=== PATIENT | male | born 2005 | race Caucasian/White ===

== ENCOUNTER 2025-01-04 12:07 | Emergency (ER) | payer OTHER, SELFPAY ==
[2025-01-04 12:08] VITALS: BP 132/71; PULSE 60; RESP 16; TEMP 36.8; O2SAT 100; BMI 23.1
--- NOTE | 2025-01-04 12:20 | EX.ED.GENINJ ---
HPI History of Present Illness Chief Complaint: Head Injury Narrative Narrative: Patient is a 19-year-old male presenting to the emergency department for head wound. He has no significant past medical history. States that he was hammering a steak into the ground when the hammer came back and struck the right upper portion of his head. He denies loss of consciousness. Denies any other injuries. Denies headache, visual changes, nausea or vomiting. Denies neck or back pain. He reports he is up-to-date on his tetanus vaccination. PFSH PFS Allergy/AdvReac Type Severity Reaction Status Date / Time No Known Allergies Allergy Verified 01/04/25 12:10 Surgical History (Updated 01/04/25 @ 12:34 by Jurgen Sorensen) Hx of tonsillectomy Social History Smoking Status: Current some day smoker tobacco type: cigarettes ROS ROS ED ROS Narrative see HPI EXAM Physical Exam Narrative Exam Narrative: Vital signs: Reviewed General: Alert and orientedx3. No acute distress HEENT: Head is normocephalic. 2 cm by 2 cm stellate laceration to right parietal portion of scalp. No underlying cephalhematoma. No active bleeding. No foreign body. Sinuses nontender, pupils equal round and reactive. Nares are patent. Oropharynx and throat exams normal. Neck: Supple without lymphadenopathy nontender. No midline cervical spinal tenderness to palpation. No step-offs or deformities. Cardiovascular: Regular rate and rhythm, no murmurs. No rubs or gallops. Normal S1 and S2 Respiratory: Clear to auscultation bilaterally. No wheezes, rales, rhonchi Abdominal: Soft and nontender. Normal bowel sounds. No guarding or rebound. Nonsurgical abdomen Extremities: No tenderness. No bruising. Normal range of motion. Normal sensation. Skin: No rash or redness. Neurological: Cranial nerves II through XII are grossly intact. Normal strength and sensation. Normal cerebellar function The rest of the physical exam is unremarkable Const Vital Signs: 01/04/25 12:08 01/04/25 12:33 01/04/25 13:53 Temperature 98.3 F 98.2 F Temperature Source Oral Pulse Rate 60 69 Respiratory Rate 16 18 Respiratory Effort Normal Respiratory Depth Normal Respiratory Pattern Normal Blood Pressure 132/71 H 137/97 H Blood Pressure Mean 91 110 Pulse Ox 100 98 100 Oxygen Delivery Method Room Air Room Air PROC Procedures Lacerations Head: Length: 1.57 in Depth: Skin Shape: Stellate Prep: - (1000 ml sterile saline) Laceration repair: Irrigated, Lidocaine with epi and Wound explored Number of Sutures/Roxanna: 6 Comment: roxanna MDM MDM MDM Narrative Medical decision making narrative: Patient is a 19-year-old male presenting emergency department for a head injury with laceration. Patient was seen and examined. Vitals are stable. Patient resting bed comfortably no acute distress. Patient is up-to-date on tetanus vaccine he reports. He denies any headache, no nausea or vomiting. [place] CT head rule negative. No indication for imaging. Wound irrigated copiously. Lido with epi injected into the wound for local anesthetic. 6 roxanna were placed. Patient tolerated well. Patient given wound care instructions. Patient discharged from the Emergency Department. I do not feel that the patient's evaluation reveals any acute reason for admission at this time. I instructed them to either follow-up with their primary care physician or promptly return to the Emergency Department for reevaluation should symptoms worsen or new symptoms develop. I explained what symptoms would indicate the need to return to the emergency department. Shared decision making was used. The patient voiced understanding of the treatment plan and is agreeable with it. Clinical impression Head injury Laceration History & Record Review Discussion w/independent historian: Patient Discharge Plan Triage Chief Complaint: Head Injury ED Provider: Sara Milton Dx/Rx/DC Orders Clinical Impression: Head injury, Laceration of head Instructions: ED Laceration, All Closures Primary Care Provider: Care Physician,No Primary Referrals: Alicia Potter MD [Med Staff - Principal Statistical Programmer] - 5-7 Days Care Physician,No Primary [Primary Care Provider] - Activity Restrictions/Additional Instructions: Need to have the roxanna removed in 7 days. This can be done by your primary care doctor or here. Your evaluation in the Emergency Department did not reveal any acute reason for admission. However, I want to emphasize that you may be early in the course of a disease process or illness even if it is not present. For this reason you should follow-up within 24 hours for reevaluation with either your primary care physician or if necessary back here in the Emergency Department. You should return to the Emergency Department immediately if your symptoms worsen or new symptoms develop. Please follow the wound care instructions that were provided in the paperwork and that were discussed. Print Language: [place] Disposition Disposition: Home, Self Care Discharge Date/Time: 01/04/25 13:55
[2025-01-04 12:33] VITALS: O2SAT 98
[2025-01-04] MEDS: Lidocaine 2% /Epi 1:100 (20ml) 20 ML VIAL 10 ML INFILT (13:01)
[2025-01-04 13:53] VITALS: BP 137/97; PULSE 69; RESP 18; TEMP 36.8; O2SAT 100
== END 2025-01-04 13:55 | disposition home or self-care (01) ==
PROVIDERS: Emergency Provider Student in an Organized Health Care Education/Training Program; Visit Provider Student in an Organized Health Care Education/Training Program
DX: S01.01XA Laceration without foreign body of scalp, initial encounter (principal); W22.8XXA Striking against or struck by other objects, initial encounter; F17.210 Nicotine dependence, cigarettes, uncomplicated
CPT/HCPCS: 12001; 99283